=== PATIENT | male | born 1935 | race Two or more races ===

== ENCOUNTER 2018-12-12 10:12 | Inpatient (IN) | payer OTHER ==
[~2018-12-12] VITALS: Ht 160 cm; Wt 63.0 kg
[2018-12-22] MEDS ORDERED: XARELTO1 EACH PO (10:12)
[2018-12-22] MEDS ORDERED: METROPOLOL PO (10:12)
[2018-12-22] MEDS ORDERED: ATORVASTATIN PO (10:13)
[2018-12-26] MEDS ORDERED: TOPROL XL50 MG PO (08:18)
[2018-12-26] MEDS ORDERED: CENTRUM SILVER1 EAC1 PO (08:19)
[2018-12-26] MEDS ORDERED: ATORVASTATIN CA10 MG PO (08:19)
[2018-12-28] MEDS ORDERED: HYOSCYAMINE0.125 M1 SL ×2 (11:23)
[2018-12-28] MEDS ORDERED: ULTRACET PO ×2 (11:24)
== END 2018-12-28 13:04 | disposition home or self-care (01) | DRG 330 ==
LOC: SURG 12-25 08:45 → O/R 12-25 08:57 → SURG 12-25 10:30
PROVIDERS: ADMIT Surgery
PROC: 0DJD8ZZ Inspection of Lower Intestinal Tract, Via Natural or Artificial Opening Endoscopic (ICD-10-PCS; 2018-12-25)
PROC: 4A12X4Z Monitoring of Cardiac Electrical Activity, External Approach (ICD-10-PCS; 2018-12-25)
PROC: 0DTG4ZZ Resection of Left Large Intestine, Percutaneous Endoscopic Approach (ICD-10-PCS; principal; 2018-12-25 10:30)
DX: C18.7 Malignant neoplasm of sigmoid colon (principal); C18.6 Malignant neoplasm of descending colon; R19.4 Change in bowel habit; I48.0 Paroxysmal atrial fibrillation; Z79.01 Long term (current) use of anticoagulants

== ENCOUNTER 2018-12-30 17:15 | Emergency (ER) | payer OTHER ==
[~2018-12-30] VITALS: Ht 160 cm; Wt 62.1 kg
[~2018-12-30 17:15] MED LIST: ATORVASTATIN CA10 MG PO; ATORVASTATIN PO; CENTRUM SILVER1 EAC1 PO; HYOSCYAMINE0.125 M1 SL; METROPOLOL PO; TOPROL XL50 MG PO; ULTRACET PO; XARELTO1 EACH PO
== END 2018-12-30 19:08 | disposition home or self-care (01) ==
LOC: ER 17:15
DX: K43.9 Ventral hernia without obstruction or gangrene (principal); Z90.49 Acquired absence of other specified parts of digestive tract

== ENCOUNTER 2019-03-05 06:00 | Day surgery (SDC) | payer OTHER ==
[~2019-03-05 06:00] MED LIST changes: +XARELTO10 MG PO
[2019-03-05] MEDS ORDERED: ULTRACET PO (10:05)
== END 2019-03-05 13:00 | disposition home or self-care (01) ==
LOC: CIR.AMB 06:00
DX: C18.7 Malignant neoplasm of sigmoid colon (principal)
CPT/HCPCS: 36561; C1751

== ENCOUNTER 2019-03-20 08:30 | Emergency (ER) | payer OTHER ==
[~2019-03-20] VITALS: Ht 162.6 cm; Wt 59.9 kg
== END 2019-03-20 18:52 | disposition home or self-care (01) ==
LOC: ER 08:30 → CPU-OBS 09:17 → ER 18:52
DX: R18.8 Other ascites (principal); K40.90 Unilateral inguinal hernia, without obstruction or gangrene, not specified as recurrent; R07.89 Other chest pain; R10.84 Generalized abdominal pain; C78.7 Secondary malignant neoplasm of liver and intrahepatic bile duct; C78.02 Secondary malignant neoplasm of left lung

== ENCOUNTER 2019-03-26 12:49 | Inpatient (IN) | payer OTHER ==
[~2019-03-26] VITALS: Ht 5.1 cm; Wt 5.0 kg
== END 2019-03-30 16:12 | disposition home or self-care (01) | DRG 445 ==
LOC: ER 12:49 → MEDJ 03-27 11:21
PROVIDERS: ADMIT Internal Medicine
PROC: BF35ZZZ Magnetic Resonance Imaging (MRI) of Liver (ICD-10-PCS; principal; 2019-03-27)
PROC: 8E0ZXY6 Isolation (ICD-10-PCS; 2019-03-27)
DX: K83.1 Obstruction of bile duct (principal); C18.7 Malignant neoplasm of sigmoid colon; C78.7 Secondary malignant neoplasm of liver and intrahepatic bile duct; C78.02 Secondary malignant neoplasm of left lung; C78.01 Secondary malignant neoplasm of right lung; R18.0 Malignant ascites; K40.90 Unilateral inguinal hernia, without obstruction or gangrene, not specified as recurrent; I12.9 Hypertensive chronic kidney disease with stage 1 through stage 4 chronic kidney disease, or unspecified chronic kidney disease; N18.2 Chronic kidney disease, stage 2 (mild); I48.0 Paroxysmal atrial fibrillation; Z79.01 Long term (current) use of anticoagulants

== ENCOUNTER 2019-06-18 08:45 | Emergency (ER) | payer OTHER ==
[~2019-06-18] VITALS: Ht 160 cm; Wt 60.8 kg
[2019-06-18] MEDS ORDERED: DULCOLAX5 MG PO (15:19)
[2019-06-18] MEDS ORDERED: DURAGESIC1 EAC1 TOP (15:19)
[2019-06-18] MEDS ORDERED: KRISTALOSE20 GM PO (15:19)
[2019-06-18] MEDS ORDERED: LASIX20 MG PO (15:19)
== END 2019-06-18 16:37 | disposition home or self-care (01) ==
LOC: ER 08:45
DX: R18.0 Malignant ascites (principal); C78.7 Secondary malignant neoplasm of liver and intrahepatic bile duct; R10.13 Epigastric pain; Z92.21 Personal history of antineoplastic chemotherapy

== ENCOUNTER 2019-07-09 11:38 | Inpatient (IN) | payer OTHER ==
[~2019-07-09] VITALS: Ht 160 cm; Wt 56.7 kg
[~2019-07-09 11:38] MED LIST changes: +DULCOLAX5 MG PO; +DURAGESIC1 EAC1 TOP; +KRISTALOSE20 GM PO; +LASIX20 MG PO
--- NOTE | 2019-07-09 12:07 | NUR ---
SE RECIBE PTE. MASCULINO ALERTA CONCIENTE Y ORIENTADO EN COMPANIA DE HIJA PTE. REFIERE DOLOR DE PECHO Y ABDOMEN DISTENDIDO DOLOR DE ESPALDA. DOLOR EN L[place] PI[place]NAS. DESDE HACE VARIOS PIMENTEL.
--- NOTE | 2019-07-09 13:40 | NUR ---
PACIENTE ALERTA Y ORIENTADO EN FRED ELEAZAR ESFERAS. SE ORIENTA A PACIENTE SOBRE PROCEDIMEINTO Y TX, REFIERE ENTENDER. SE EXTRAE MUESTRAS DE LABORATORIO CON MEDIDAS ASEPTICAS Y SE ORIENTA SOBRE CONTRASTE PARA CT W PO.
--- NOTE | 2019-07-09 15:42 | NUR ---
SE RECIBE DE TURNO ANTERIOR EN UNIDAD DE CHEST PAIN.MASCULINO DE 83 ANOS UBIVADO EN RAYRAY #16. DESCNASANDO EN CAMA NIVEL MAS BAJO,BARANDAS ELEVADAS,FRENOS,LOREDO DE IDENTIFICACION COLOCADOS POR SEGURIDAD. EN COMPANIA DE HIJA. CONECTADO A MONITOR CARDIACO,OXIMETRIA DE PULSO CONTINUA. SE OBSERVA CON BUEN PATRON RESPIRATORIO,PIEL TIBIA AL TACTO. VENOPUNCION EN BRAZO DERECHOO SE ONSERVA LIMPIA,SECA,GERARDO DE S/S EDEMA Y/O ERITEMA. SE MANTIENE BAJOP OBSERVACION.
--- NOTE | 2019-07-09 17:13 | NUR ---
SE ORIENTA PACIENTE Y FAMILIAR SOBRE ORDEN MEDICA DE MUESTRA DE LABORATORIO,REFIEREN COMPRENDER. SE COLECTA MUESTRA DE LABORATORIOS LONNIE ORDEN MEDICA SIGUIENDO MEDIDAS ASEPTICAS. MUESTRA DE ROTULA, SE ENVIA PARA ANALISIS.PACIENTE TOLERA PROCEDIMIENTO.
--- NOTE | 2019-07-09 20:09 | NUR ---
CONSULTA PACIENTE CON POR MALIGNAT ASCITES. DA PERMISO A PACIENTE A LEVANTARSE E IR AL HELEN. FAMILIAR ASISTE A PACIENTE.
--- NOTE | 2019-07-10 00:03 | NUR ---
SE RECIBE PT ALERTA Y ORIENTADO EN TIEMPO LUGAR Y PERSONA, CONECTADO A MONITOR CARDIACO Y OXIMETRIA DE PULSO CONTINUA. PT CON BARANDAS ELEVADAS Y TIMBRE ACCESIBLE. PT CON SALINE LOCK EN MANO RT PATENTE GERARDO DE EDEMA Y ERITEMA. PT GERARDO DE DOLOR AL MOMENTO. SE MANTIENE EN OBSERVACION POR CAMBIOS.
--- NOTE | 2019-07-10 01:40 | NUR ---
PT PRESENTA 3ER EPISODIO DE DIARREA Y SE OBSERVA PULSO ENTRE 96 A 135LPM.SE LE REALIZA EKG Y SE PRESENTA A DR MAX (ER) EL CUAL EVALUA EL MISMO Y ORDENA TX. SE COMIENZA A PT EN 0.9NSS BAJANDO A 120ML/HR Y SE ADMINISTRAN MEDICAMENTOS LONNIE PRESCRITOS, PT TOLERA. PULSO 91 A 102LPM.
--- NOTE | 2019-07-10 06:23 | NUR ---
SE NOTIFICA A DR REBOLLEDO, PTE CONNOLLY PRESENTADO DIARREAS Y ESPISODIOS DE HR DE 91 A 135LPM, CHANTELLE SE SOSTIENE EN 91LPM A 108LPM. REFIERE EVALUARA A PTE Y ORDENA REPETIR MUESTRAS DE LABORATORIOS. SE ORIENTA A PT SOBRE PROCEDIMIENTO, REFIERE ENTENDER. SE LE COLECTAN MUESTRAS BAJO MEDIDAS ASEPTICAS PT TOLERA.
--- NOTE | 2019-07-10 07:45 | NUR ---
SE RECIBE PTE MASCULINO EN CAMA #16 EL CUAL SE ENCUENTRA CONECTADO A MONITOR CARDIACO CON RITMO INRREGULAR Y OXIMETRIA DE PULSO SATURANDO UN 98% AT ROOM AIR. PTE PRESENTA AREA DE VENOPUNCION PATENTE EN BRAZO DERECHO CON 0.9NSS AT 120 ML/HR. PTE NO PRESENTA ALGUN TIPO DE DOLOR ALGUNO HASTA EL MOMENTO. PTE PERISTALSIS EN ABDOMEN AL MOMENTO DE ARY DE S/V DE PTE NO PRESENTA EPISODIO DE EVACUACION A DIARREA ALGUNA. PTE SE MANTIENE BAJO OBSERVACION RECIBIENDO TRATAMIENTO MEDICO EN ESPERA DE CONSULTA CON DR. KESHA REGALADO.
[2019-07-12] MEDS ORDERED: KRISTALOSE20 GM PO (11:06)
[2019-07-12] MEDS ORDERED: TOPROL XL50 MG PO (11:06)
[2019-07-12] MEDS ORDERED: FLAGYL500MG PO (11:06)
[2019-07-12] MEDS ORDERED: DURAGESIC1 EAC1 TOP (11:06)
[2019-07-12] MEDS ORDERED: ATORVASTATIN CA10 MG PO (11:06)
[2019-07-12] MEDS ORDERED: XARELTO10 MG PO (11:06)
[2019-07-12] MEDS ORDERED: PANTOPRAZOLE SO40 MG PO (11:06)
[2019-07-12] MEDS ORDERED: INTESTINEX680 M1 PO (11:06)
== END 2019-07-12 11:26 | disposition home or self-care (01) | DRG 374 ==
LOC: ER 11:38 → SURH 07-10 10:46 → SEC-K 07-10 10:46 → SURH 07-10 13:43
PROVIDERS: ADMIT Internal Medicine Geriatric Medicine
PROC: 0W9G30Z Drainage of Peritoneal Cavity with Drainage Device, Percutaneous Approach (ICD-10-PCS; principal; 2019-07-10)
PROC: 8E0ZXY6 Isolation (ICD-10-PCS; 2019-07-10)
PROC: 4A12X4Z Monitoring of Cardiac Electrical Activity, External Approach (ICD-10-PCS; 2019-07-10)
DX: C7A.025 Malignant carcinoid tumor of the sigmoid colon (principal); K83.1 Obstruction of bile duct; C78.7 Secondary malignant neoplasm of liver and intrahepatic bile duct; C78.02 Secondary malignant neoplasm of left lung; C78.01 Secondary malignant neoplasm of right lung; R18.0 Malignant ascites; I48.91 Unspecified atrial fibrillation; E78.00 Pure hypercholesterolemia, unspecified